=== PATIENT | male | born 1975 | race African-American/Black ===

== ENCOUNTER 2020-03-28 03:55 | Emergency (ER) | payer MEDICAID, OTHER ==
[~2020-03-28] VITALS: Ht 177.8 cm; Wt 100.0 kg
[~2020-03-28 03:55] MED LIST: ATENOLOL; LISINOPRIL
[2020-03-28] MEDS ORDERED: ACETAMINOPHEN 325MG TABLET PO ONE (06:30)
[2020-03-28 07:40] VITALS: BP 149/91
== END 2020-03-28 07:40 | disposition home or self-care (01) ==
LOC: ER 03:55
DX: S00.83XA Contusion of other part of head, initial encounter (principal); M54.2 Cervicalgia; M54.89 Other dorsalgia; V49.49XA Driver injured in collision with other motor vehicles in traffic accident, initial encounter; Y93.89 Activity, other specified; Y92.488 Other paved roadways as the place of occurrence of the external cause; I10 Essential (primary) hypertension; M48.02 Spinal stenosis, cervical region; M47.892 Other spondylosis, cervical region; F12.90 Cannabis use, unspecified, uncomplicated; F14.10 Cocaine abuse, uncomplicated; Z83.3 Family history of diabetes mellitus; Z82.49 Family history of ischemic heart disease and other diseases of the circulatory system
CPT/HCPCS: 99285

== ENCOUNTER 2023-11-07 06:54 | Emergency (ER) | payer MEDICAID, OTHER ==
[~2023-11-07] VITALS: Ht 177.8 cm; Wt 95.0 kg
[2023-11-07 06:56] VITALS: O2SAT 100
[2023-11-07 06:57] VITALS: BP 169/109; PULSE 88; RESP 16; TEMP 98; O2SAT 100
== END 2023-11-07 07:20 | disposition left against medical advice (07) ==
LOC: ER 06:54
DX: Z48.02 Encounter for removal of sutures (principal); Z53.21 Procedure and treatment not carried out due to patient leaving prior to being seen by health care provider